=== PATIENT | male | born 1985 | race African-American/Black ===

== ENCOUNTER 2018-10-27 09:03 | Emergency (ER) | payer OTHER ==
[~2018-10-27] VITALS: Ht 177.8 cm; Wt 68.0 kg
[2018-10-27 09:18] LABS: URINE BILIRUBIN NEGATIVE (Negative); URINE BLOOD 3+ (Negative); URINE CLARITY CLEAR; URINE COLOR YELLOW; URINE GLUCOSE-RANDOM* NEGATIVE (Negative); URINE KETONES 1+ (Negative); URINE LEUKOCYTES NEGATIVE (Negative); URINE NITRITE NEGATIVE (Negative); URINE PROTEIN (DIPSTICK) 1+ (Negative)
[2018-10-27 09:29] LABS: CASTS None Seen /LPF (None Seen); SQUAMOUS 0-3 Few /LPF (0-3); URINE WBC None Seen /HPF (0-5)
[2018-10-27 09:30] LABS: BACTERIA None Seen /HPF (None Seen); CRYSTALS None Seen /LPF (None Seen); MUCUS 0-3 Light strn/LPF (None Seen); URINE RBC >20 Many /HPF (0-2)
[2018-10-27 09:45] LABS: BASOPHILS 0.7 % (0.0-2.0); HEMATOCRIT 43.6 % (42.0-52.0); HEMOGLOBIN 14.2 gm/dL (14.0-18.0); LYMPHOCYTES 6.2 % (24.0-44.0); MCH 28.9 pg (26.0-34.0); MCHC 32.5 g/dL (28.0-37.0); MCV 88.9 fL (80.0-100.0); MONOCYTES 2.9 % (1.0-8.0); PLATELET COUNT 214 thou/uL (150-400); POLYS 90.2 % (36.0-66.0); RDW 12.2 % (10.5-14.5); WBC 7.8 thou/uL (4.0-11.0)
[2018-10-27 09:51] LABS: CALCIUM 9.6 mg/dL (8.5-10.1); POTASSIUM 4.1 mmol/L (3.5-5.1)
[2018-10-27 09:57] LABS: ALBUMIN 4.8 g/dL (3.4-5.0); TOTAL BILIRUBIN 0.4 mg/dL (<0.1-1.0); TOTAL PROTEIN 8.3 g/dL (6.4-8.2)
[2018-10-27] MEDS ORDERED: ONDANSETRON ODT8 MG PO (10:36)
[2018-10-27] MEDS ORDERED: NAPROSYN500 MG PO (10:36)
[2018-10-27 11:16] VITALS: BP 129/64
== END 2018-10-27 11:16 | disposition home or self-care (01) ==
LOC: ER 09:03
PROVIDERS: Emergency Medicine
DX: N13.2 Hydronephrosis with renal and ureteral calculous obstruction (principal); R10.31 Right lower quadrant pain; R11.2 Nausea with vomiting, unspecified

== ENCOUNTER 2018-10-29 10:18 | Emergency (ER) | payer OTHER ==
[~2018-10-29] VITALS: Ht 177.8 cm; Wt 68.0 kg
[~2018-10-29 10:18] MED LIST: NAPROSYN500 MG PO; ONDANSETRON ODT8 MG PO
[2018-10-29 10:54] LABS: HEMATOCRIT 40.7 % (42.0-52.0); HEMOGLOBIN 13.3 gm/dL (14.0-18.0); MCH 29.1 pg (26.0-34.0); MCHC 32.5 g/dL (28.0-37.0); MCV 89.5 fL (80.0-100.0); RBC 4.55 mil/uL (4.50-6.00); RDW 12.3 % (10.5-14.5); WBC 7.2 thou/uL (4.0-11.0)
[2018-10-29 11:03] LABS: CALCIUM 9.3 mg/dL (8.5-10.1); CREATININE 1.6 mg/dL (0.7-1.3); POTASSIUM 3.8 mmol/L (3.5-5.1)
[2018-10-29 11:09] LABS: ALBUMIN 4.3 g/dL (3.4-5.0); DIRECT BILIRUBIN 0.1 mg/dL (<0.1-0.3); TOTAL BILIRUBIN 0.5 mg/dL (<0.1-1.0); TOTAL PROTEIN 7.3 g/dL (6.4-8.2)
[2018-10-29 11:24] LABS: URINE BILIRUBIN NEGATIVE (Negative); URINE BLOOD NEGATIVE (Negative); URINE CLARITY CLEAR; URINE COLOR YELLOW; URINE GLUCOSE-RANDOM* NEGATIVE (Negative); URINE KETONES NEGATIVE (Negative); URINE LEUKOCYTES-REFLEX TRACE (Negative); URINE NITRITE-REFLEX NEGATIVE (Negative); URINE PROTEIN (DIPSTICK) TRACE (Negative); URINE UROBILINOGEN 0.2 E.U./dl (0.2-1.0)
[2018-10-29] MEDS ORDERED: FLOMAX0.4 MG PO (12:27)
[2018-10-29] MEDS ORDERED: ZOFRAN ODT4 MG PO (12:27)
[2018-10-29] MEDS ORDERED: NORCO 5-325 TA1 EAC1 PO (12:27)
[2018-10-29 12:44] VITALS: BP 131/68
== END 2018-10-29 12:45 | disposition home or self-care (01) ==
LOC: ER 10:18
PROVIDERS: Emergency Medicine
DX: N17.9 Acute kidney failure, unspecified (principal); N20.1 Calculus of ureter; F17.210 Nicotine dependence, cigarettes, uncomplicated; Z87.442 Personal history of urinary calculi